=== PATIENT | male | born 1990 | race Caucasian/White ===

== ENCOUNTER 2018-12-05 13:21 | Emergency (ER) | payer OTHER, SELFPAY ==
[2018-12-05] VITALS (25 sets, daily range): BP systolic 124–163; BP diastolic 54–92; PULSE 83–112; RESP 14–27; TEMP 37.1; O2SAT 95–99
[2018-12-05] MEDS: Normal Saline 1,000 ML 1000 ML IV ×2 (13:53→15:15)
[2018-12-05 14:17] LABS: Abs Immature Grans 0.03 k/cumm (0.0-0.09); Absolute Basophil Count 0.09 k/cumm (0.0-0.2); Absolute Eosinophil Count 0.15 k/cumm (0.0-0.7); Absolute Lymphocyte Count 2.18 k/cumm (1.2-3.4); Absolute Monocyte Count 0.88 k/cumm (0.11-0.7); Absolute Neutrophil Count 5.91 k/cumm (1.2-6.7); Eosinophils % 1.6; HCT 40.7 % (40.0-50.0); HGB 13.8 g/dL (13.5-17.5); Immature Grans % 0.3; Lymphocytes % 23.6; Mean Corp. HGB Concentration 33.9 g/dL (32.0-36.0); Mean Corpuscular Hemoglobin 33.8 pg (27.0-33.0); Mean Corpuscular Volume 99.8 fL (80-95); Mean Platelet Volume 10.2 fL (8.0-11.0); Monocytes % 9.5; Platelet Count 331 x1000/uL (130-400); RBC 4.08 m/cumm (4.50-6.00); RBC Distribution Width 13.4 % (11.8-14.1); White Blood Cell Count 9.24 k/cumm (4.4-10.8)
[2018-12-05 14:31] LABS: ALT 68 U/L (12-78); AST 43 U/L (15-37); Albumin 3.6 g/dL (3.4-5.0); Alkaline Phosphatase 82 U/L (46-116); Anion Gap 12.4 mmol/L (3-11); BUN 15 mg/dL (7-18); Bilirubin, Total 0.4 mg/dL (0.2-1.0); CO2 24.6 mmol/L (21.0-32.0); Calcium 8.3 mg/dL (8.5-10.1); Chloride 99 mmol/L (98-107); Glucose 125 mg/dL (70-100); Magnesium 1.7 mg/dL (1.8-2.4); Potassium 3.5 mmol/L (3.5-5.1); Sodium 136 mmol/L (136-145)
[2018-12-05 14:38] LABS: Troponin I < 0.02 ng/mL (0.00-0.06)
[2018-12-05] MEDS: Magnesium Oxide 400 MG TAB PO (15:16)
--- NOTE | 2018-12-05 16:17 | W.ED.GENAD ---
Discharge Plan Disposition Patient Disposition: HOME Condition: Improving Discharge Details Chief Complaint: Dizzy/Sync Clinical Impression: Acute dehydration Primary Care Provider: None,None ED Provider: Jasson Guo Home Meds and New Rx's Prescriptions: No Action No Known Home Meds RF: 0 Discharge Instructions Instructions: Dehydration (ED) Additional Instructions: Please continue to drink lots of water and refrain from excessive intake of alcohol. If your symptoms return or worsen feel free to return to the emergency department for reevaluation otherwise follow-up with your primary care provider when you return home for any further concerns. Referrals: Primary Care Provider [Outside] (When you return home follow-up with primary care provider as needed) Discharge Data Discharge Date/Time-TO BE ENTERED AT DEPARTURE: 12/05/18 16:33 Medical Decision Making Patient presenting the emergency department for chief complaint of rapid heart rate and some tingling into his extremities. Patient does state excessive alcohol intake last night with episodes of vomiting. Patient denies any other symptoms. Beyond patient using vape e-cigarette every day patient has no other risk factors for cardiac. Plan to do labs, EKG, and hydrate as I feel this is secondary to alcohol intake. I do feel that there is an anxiety component to this. Physical exam is unremarkable except for tachycardia EKG reviewed with Dr. Gavi Ornelas and shows sinus tachycardia, rate of 112, no ischemic changes, otherwise nondiagnostic EKG Labs reviewed and show low magnesium, nondiagnostic CBC, negative troponin. Patient reassessed and states that he is doing better and after 1 L of fluid had heart rate now in the 90s to low 100s. Patient given second liter of fluid and oral magnesium and reassess. Patient stated improvement of symptoms. I feel that patient's symptoms are secondary to dehydration from alcohol intake and anxiety. Patient was encouraged to continue hydration at home, return for new or worsening symptoms, and follow-up with primary care provider when he returns home. Patient no longer has tachycardia and no change in exam, denies chest pain. After discussion of diagnosis and plan of care patient has no further needs, questions, or concerns and states clear understanding to return to the emergency department for any worsening symptoms. HPI General Mode of arrival: ambulatory. Date/Time Provider Initiated Documentation: 12/05/18 13:27. Limitations to Documentation: no limitations. Information obtained by: patient and RN notes reviewed. History of Present Illness 27 year old M presents to the emergency department with the chief complaint of rapid heart rate, described as moderate, Quality is described as other (denies pain), Patient started experiencing this hour(s) (1) and it has been constant. Patient did receive the following treatments prior to arrival, none Related Data Home Medications Medication Instructions Recorded Confirmed Unknown [No Known Home Meds] 12/05/18 12/05/18 Allergies Allergy/AdvReac Type Severity Reaction Status Date / Time No Known Allergies Allergy Unverified 12/05/18 13:32 General Stated Complaint: Dizzy/Sync TRI: 3 Review of Systems Constitutional Denies chills, Denies fever(s) and Denies malaise ENT Denies dizziness Cardiovascular Reports as per HPI, Denies chest pain, Reports chest pain with activity, Denies syncope, Denies irregular heart rhythm, Reports palpitations and Denies dyspnea Respiratory Denies cough, Denies hemoptysis and Denies dyspnea Gastrointestinal Denies abdominal pain, Denies nausea and Reports vomiting Musculoskeletal Reports tingling (in left arm) Neurologic Denies confusion, Denies dizziness, Denies syncope, Denies focal weakness, Denies sensory deficit and Reports tingling (in left arm) Psychiatric Reports anxiety and Denies confusion Endocrine Reports palpitations [facility] Social History Smoking/Tobacco Use Status: Current every day Tobacco Type: e-cigarettes Alcohol Intake: current Alcohol Intake frequency: a few times a week Substance use type: does not use Do you feel safe at home: Yes Do you feel safe in your relationship?: Yes Exam Const General: cooperative, healthy appearing, comfortable, no acute distress, not diaphoretic and not ill appearing Nutritional Appearance: average body habitus Orientation: alert, awake and oriented x3 Limitations: mental status not altered Neck Neck: normal visual inspection, full ROM, trachea midline, supple and no anterior neck swelling Thyroid: thyroid normal Carotids: normal carotid upstroke and no bruits Chest Chest: normal inspection of the chest Resp Effort & Inspection: normal respiratory effort and able to speak in complete sentences Auscultation: clear to auscultation bilaterally Cardio Jugular venous pressure: no JVD Palpation: normal PMI Rate: tachycardic Rhythm: regular rhythm Heart Sounds: S1 normal, S2 normal, no click, no gallops, no murmurs and no rubs Bruits: no abdominal aortic bruits and no carotid bruits Pulses: radial pulses present bilaterally 2+ Skin General skin exam: no rashes or lesions noted Neuro General: alert, awake, oriented x3, tone normal, moves all extremities, normal light touch, pain and propioception, no focal motor deficits and CN's II-XI intact bilaterally Course Vital Signs Temperature 37.1 C 12/05/18 13:26 Pulse 108 H 12/05/18 13:26 Respiratory Rate 20 12/05/18 13:26 Blood Pressure 153/91 H 12/05/18 13:26 Pulse Oximetry 99 12/05/18 13:26 Temperature 37.1 C 12/05/18 13:26 Temperature Source Temporal Artery Scan 12/05/18 13:26 Pulse 108 H 12/05/18 13:26 Respiratory Rate 20 12/05/18 13:26 Respiratory Effort Non-Labored 12/05/18 13:26 Blood Pressure 153/91 H 12/05/18 13:26 Pulse Oximetry 99 12/05/18 13:26 Oxygen Delivery Method Room Air 12/05/18 13:26 Oxygen Flow Rate 0 12/05/18 13:26 Pain Level 0 12/05/18 13:26 Lab/Test Results Lab/Test Results: Laboratory Tests Range/Units 12/05/18 12/05/18 14:10 14:10 WBC (4.4-10.8) k/cumm 9.24 RBC (4.50-6.00) m/cumm 4.08 L Hgb (13.5-17.5) g/dL 13.8 Hct (40.0-50.0) % 40.7 MCV (80-95) fL 99.8 H MCH (27.0-33.0) pg 33.8 H MCHC (32.0-36.0) g/dL 33.9 RDW (11.8-14.1) % 13.4 Plt Count (130-400) x1000/uL 331 MPV (8.0-11.0) fL 10.2 Immature Gran % 0.3 Neutrophils % 64.0 Lymphocytes % 23.6 Monocytes % 9.5 Eosinophils % 1.6 Basophils % 1.0 Absolute Neutrophils (1.2-6.7) k/cumm 5.91 Absolute Lymphocytes (1.2-3.4) k/cumm 2.18 Absolute Monocytes (0.11-0.7) k/cumm 0.88 H Absolute Eosinophils (0.0-0.7) k/cumm 0.15 Absolute Basophils (0.0-0.2) k/cumm 0.09 Sodium (136-145) mmol/L 136 Potassium (3.5-5.1) mmol/L 3.5 Chloride (98-107) mmol/L 99 Carbon Dioxide (21.0-32.0) mmol/L 24.6 Anion Gap (3-11) mmol/L 12.4 H BUN (7-18) mg/dL 15 Creatinine (0.70-1.30) mg/dL 1.00 Estimated GFR/1.73 m2 (mL/min/1.73m2) >= 60.00 Glucose (70-100) mg/dL 125 H Calcium (8.5-10.1) mg/dL 8.3 L Magnesium (1.8-2.4) mg/dL 1.7 L Total Bilirubin (0.2-1.0) mg/dL 0.4 AST (15-37) U/L 43 H ALT (12-78) U/L 68 Alkaline Phosphatase (46-116) U/L 82 Troponin I (0.00-0.06) ng/mL < 0.02 Total Protein (6.4-8.2) g/dL 7.0 Albumin (3.4-5.0) g/dL 3.6
--- NOTE | 2018-12-05 16:22 | ED.GENADUL_ITS ---
Discharge Plan Disposition Patient Disposition: HOME Condition: Improving Discharge Details Chief Complaint: Dizzy/Sync Clinical Impression: Acute dehydration Primary Care Provider: None,None ED Provider: Jasson Guo Home Meds and New Rx's Prescriptions: No Action No Known Home Meds RF: 0 Discharge Instructions Instructions: Dehydration (ED) Additional Instructions: Please continue to drink lots of water and refrain from excessive intake of alcohol. If your symptoms return or worsen feel free to return to the emergency department for reevaluation otherwise follow-up with your primary care provider when you return home for any further concerns. Referrals: Primary Care Provider [Outside] (When you return home follow-up with primary care provider as needed) Discharge Data Discharge Date/Time-TO BE ENTERED AT DEPARTURE: 12/05/18 16:33 Medical Decision Making Patient presenting the emergency department for chief complaint of rapid heart rate and some tingling into his extremities. Patient does state excessive alcohol intake last night with episodes of vomiting. Patient denies any other symptoms. Beyond patient using vape e-cigarette every day patient has no other risk factors for cardiac. Plan to do labs, EKG, and hydrate as I feel this is secondary to alcohol intake. I do feel that there is an anxiety component to this. Physical exam is unremarkable except for tachycardia EKG reviewed with Dr. Gavi Ornelas and shows sinus tachycardia, rate of 112, no ischemic changes, otherwise nondiagnostic EKG Labs reviewed and show low magnesium, nondiagnostic CBC, negative troponin. Patient reassessed and states that he is doing better and after 1 L of fluid had heart rate now in the 90s to low 100s. Patient given second liter of fluid and oral magnesium and reassess. Patient stated improvement of symptoms. I feel that patient's symptoms are secondary to dehydration from alcohol intake and anxiety. Patient was encouraged to continue hydration at home, return for new or worsening symptoms, and follow-up with primary care provider when he returns home. Patient no longer has tachycardia and no change in exam, denies chest pain. After discussion of diagnosis and plan of care patient has no further needs, questions, or concerns and states clear understanding to return to the emergency department for any worsening symptoms. HPI General Mode of arrival: ambulatory . Date/Time Provider Initiated Documentation: 12/05/18 13:27 . Limitations to Documentation: no limitations . Information obtained by: patient and RN notes reviewed . History of Present Illness 27 year old M presents to the emergency department with the chief complaint of rapid heart rate, described as moderate, Quality is described as other (denies pain), Patient started experiencing this hour(s) (1) and it has been constant. Patient did receive the following treatments prior to arrival, none Related Data Home Medications Medication Instructions Recorded Confirmed Unknown [No Known Home Meds] 12/05/18 12/05/18 Allergies Allergy/AdvReac Type Severity Reaction Status Date / Time No Known Allergies Allergy Unverified 12/05/18 13:32 General Stated Complaint: Dizzy/Sync TRI: 3 Review of Systems Constitutional Denies chills, Denies fever(s) and Denies malaise ENT Denies dizziness Cardiovascular Reports as per HPI, Denies chest pain, Reports chest pain with activity, Denies syncope, Denies irregular heart rhythm, Reports palpitations and Denies dyspnea Respiratory Denies cough, Denies hemoptysis and Denies dyspnea Gastrointestinal Denies abdominal pain, Denies nausea and Reports vomiting Musculoskeletal Reports tingling (in left arm) Neurologic Denies confusion, Denies dizziness, Denies syncope, Denies focal weakness, D enies sensory deficit and Reports tingling (in left arm) Psychiatric Reports anxiety and Denies confusion Endocrine Reports palpitations [facility] Social History Smoking/Tobacco Use Status: Current every day Tobacco Type: e-cigarettes Alcohol Intake: current Alcohol Intake frequency: a few times a week Substance use type: does not use Do you feel safe at home: Yes Do you feel safe in your relationship?: Yes Exam Const General: cooperative, healthy appearing, comfortable, no acute distress, not diaphoretic and not ill appearing Nutritional Appearance: average body habitus Orientation: alert, awake and oriented x3 Limitations: mental status not altered Neck Neck: normal visual inspection, full ROM, trachea midline, supple and no anterior neck swelling Thyroid: thyroid normal Carotids: normal carotid upstroke and no bruits Chest Chest: normal inspection of the chest Resp Effort & Inspection: normal respiratory effort and able to speak in complete sentences Auscultation: clear to auscultation bilaterally Cardio Jugular venous pressure: no JVD Palpation: normal PMI Rate: tachycardic Rhythm: regular rhythm Heart Sounds: S1 normal, S2 normal, no click, no gallops, no murmurs and no rubs Bruits: no abdominal aortic bruits and no carotid bruits Pulses: radial pulses present bilaterally 2+ Skin General skin exam: no rashes or lesions noted Neuro General: alert, awake, oriented x3, tone normal, moves all extremities, normal light touch, pain and propioception, no focal motor deficits and CN's II-XI intact bilaterally Course Vital Signs Temperature 37.1 C 12/05/18 13:26 Pulse 108 H 12/05/18 13:26 Respiratory Rate 20 12/05/18 13:26 Blood Pressure 153/91 H 12/05/18 13:26 Pulse Oximetry 99 12/05/18 13:26 Temperature 37.1 C 12/05/18 13:26 Temperature Source Temporal Artery Scan 12/05/18 13:26 Pulse 108 H 12/05/18 13:26 Respiratory Rate 20 12/05/18 13:26 Respiratory Effort Non-Labored 12/05/18 13:26 Blood Pressure 153/91 H 12/05/18 13:26 Pulse Oximetry 99 12/05/18 13:26 Oxygen Delivery Method Room Air 12/05/18 13:26 Oxygen Flow Rate 0 12/05/18 13:26 Pain Level 0 12/05/18 13:26 Lab/Test Results Lab/Test Results: Laboratory Tests Range/Units 12/05/18 12/05/18 14:10 14:10 WBC (4.4-10.8) k/cumm 9.24 RBC (4.50-6.00) m/cumm 4.08 L Hgb (13.5-17.5) g/dL 13.8 Hct (40.0-50.0) % 40.7 MCV (80-95) fL 99.8 H MCH (27.0-33.0) pg 33.8 H MCHC (32.0-36.0) g/dL 33.9 RDW (11.8-14.1) % 13.4 Plt Count (130-400) x1000/uL 331 MPV (8.0-11.0) fL 10.2 Immature Gran % 0.3 Neutrophils % 64.0 Lymphocytes % 23.6 Monocytes % 9.5 Eosinophils % 1.6 Basophils % 1.0 Absolute Neutrophils (1.2-6.7) k/cumm 5.91 Absolute Lymphocytes (1.2-3.4) k/cumm 2.18 Absolute Monocytes (0.11-0.7) k/cumm 0.88 H Absolute Eosinophils (0.0-0.7) k/cumm 0.15 Absolute Basophils (0.0-0.2) k/cumm 0.09 Sodium (136-145) mmol/L 136 Potassium (3.5-5.1) mmol/L 3.5 Chloride (98-107) mmol/L 99 Carbon Dioxide (21.0-32.0) mmol/L 24.6 Anion Gap (3-11) mmol/L 12.4 H BUN (7-18) mg/dL 15 Creatinine (0.70-1.30) mg/dL 1.00 Estimated GFR/1.73 m2 (mL/min/1.73m2) >= 60.00 Glucose (70-100) mg/dL 125 H Calcium (8.5-10.1) mg/dL 8.3 L Magnesium (1.8-2.4) mg/dL 1.7 L Total Bilirubin (0.2-1.0) mg/dL 0.4 AST (15-37) U/L 43 H ALT (12-78) U/L 68 Alkaline Phosphatase (46-116) U/L 82 Troponin I (0.00-0.06) ng/mL < 0.02 Total Protein (6.4-8.2) g/dL 7.0 Albumin (3.4-5.0) g/dL 3.6
== END 2018-12-05 16:33 | disposition home or self-care (01) ==
PROVIDERS: Emergency Provider Nurse Practitioner Family
DX: E86.0 Dehydration (principal); R00.0 Tachycardia, unspecified
CPT/HCPCS: 36415; 80053; 93005; 96360; 96361; 99284; 83735; 84484; 85025; 93010